=== PATIENT | male | born 1965 | race African-American/Black ===

== ENCOUNTER 2017-04-14 22:17 | Emergency (ER) | payer SELFPAY | END 2017-04-15 00:56 | LOC: EME 22:17 → EDBD 22:17 → EME 04-15 00:56 | PROC: 0BH17EZ Insertion of Endotracheal Airway into Trachea, Via Natural or Artificial Opening (ICD-10-PCS; principal; 2017-04-14) | PROC: 5A12012 Performance of Cardiac Output, Single, Manual (ICD-10-PCS; principal; 2017-04-14) | DX: I46.9 Cardiac arrest, cause unspecified (principal); Y92.481 Parking lot as the place of occurrence of the external cause | CPT/HCPCS: 99281; 99285; J2310 ==